=== PATIENT | male | born 1935 | race Caucasian/White ===

== ENCOUNTER 2016-12-31 09:55 | Emergency (ER) | payer OTHER ==
[~2016-12-31] VITALS: Ht 177.8 cm; Wt 48.6 kg
[~2016-12-31 09:55] MED LIST: APAP/CODEINE; ASPIR 8181 M1 PO; ATIVAN0.5 MG PO; BENADRYL ALLERG25 MG PO; BENADRYL25 MG PO; Benadryl PO; CIPRO500 MG PO; CORRECTOL5 M1 PO; CRANBERRY250 MG PO; Colace PO; DUONEB 2.5-0.5 M3 ML IPPB; Dulcolax PO; FLOMAX0.4 MG PO; Flomax PO; Heparin Lock 100 uni IV; IRON325 M1 PO; Kenalog,Aristocort 0 TP; LEVOPHED IV; LIDEX 0.05% CRE60 GM TP; LOPRESSOR25 MG PO; Lopressor PO; Lovenox SC; METHENAMINE HIPP1 G1 PO; MICATIN15 GM TP; MONDOXYNE NL100 MG PO; Maalox, Mylanta PO; Milk Of Magnesia,MOM PO; Nitrostat,NitroQuick SL; Normal Saline,NaCl 0 IV; OMEPRAZOLE20 MG PO; PRILOSEC40 MG PO; PROZAC10 MG PO; PROzac PO; Protonix PO; REMERON30 M2 PO; Rocephin IV; SALINE FLUSH 5 M5 ML IV; SIMETHICONE125 M1 PO; SINEMET 10-1001 EACH PO; SINEMET PO; TRIAMCINOLONE A15 G1 TP; TYLENOL REGULA325 MG PO; TYLENOL WITH C1 EACH PO; ULTRAM50 MG PO; Ultram PO; VERSED IV; VITAMIN A A1 CAPSULE PO; Zofran IV
[2016-12-31 10:35] LABS: EOSINOPHIL (%) 5.3 % (0-5); EOSINOPHIL COUNT 0.4 K/uL (0-0.3); HEMATOCRIT 34.9 % (38.0-50.0); IMMATURE GRANULOCYTE (%) 1.6 % (0.0-0.7); IMMATURE GRANULOCYTE COUNT 0.1 K/uL; INSTRUMENT ABS NEUTROPHIL CT 5.3 K/uL; LYMPHOCYTE COUNT 0.6 K/uL (1.0-2.8); MCH 27.3 PG (29.0-34.0); MCHC 30.1 G/DL (30.0-36.0); MCV 90.9 FL (86-99); MEAN PLAT.VOLUME 9.2 uM^3 (9.0-12.4); MONOCYTE COUNT 0.6 K/uL (0-0.8); NEUTROPHIL (%) 75.7 % (45-76); NEUTROPHIL COUNT 5.3 K/uL (1.8-6.4); PLATELET COUNT 253 K/uL (156-360); RBC DIS.WIDTH-CV 15.3 % (11.8-14.6); RBC DIS.WIDTH-SD 51.1 % (39-53); RED BLOOD COUNT 3.84 M/uL (4.00-5.50)
[2016-12-31 10:44] LABS: INTER. NORMALIZED RATIO 1.1; PROTHROMBIN TIME 11.3 (9.2-11.2); PTT 30.2 (25-32)
[2016-12-31 10:45] LABS: CHLORIDE 110 mEq/L (99-109); SODIUM 143 mEq/L (136-147)
[2016-12-31 10:47] LABS: GLUCOSE 97 mg/dL (70-99)
[2016-12-31 10:48] LABS: ANION GAP 8 MEQ/L (2-14)
[2016-12-31 10:51] LABS: GFR ESTIMATE (CALCULATED) > 59 mL/min/
[2016-12-31 10:52] LABS: UREA NITROGEN (BUN) 37 mg/dL (9-23)
[2016-12-31 10:56] LABS: TROP-I INTERPRETATION NEGATIVE; TROPONIN-I 0.01 ng/mL (0.0-0.30)
[2016-12-31 13:56] VITALS: BP 107/68
== END 2016-12-31 14:58 | disposition short-term general hospital (02) ==
LOC: EME 09:55
PROVIDERS: Emergency Medicine
PROC: 0HQ1XZZ Repair Face Skin, External Approach (ICD-10-PCS; principal; 2016-12-31)
DX: I63.9 Cerebral infarction, unspecified (principal); S01.81XA Laceration without foreign body of other part of head, initial encounter; S51.012A Laceration without foreign body of left elbow, initial encounter; W26.9XXA Contact with unspecified sharp object(s), initial encounter; F32.9 Major depressive disorder, single episode, unspecified; Z86.73 Personal history of transient ischemic attack (TIA), and cerebral infarction without residual deficits; E55.9 Vitamin D deficiency, unspecified; G62.9 Polyneuropathy, unspecified; N40.0 Benign prostatic hyperplasia without lower urinary tract symptoms; F03.90 Unspecified dementia, unspecified severity, without behavioral disturbance, psychotic disturbance, mood disturbance, and anxiety; G20 Parkinson's disease; Z66 Do not resuscitate; R29.810 Facial weakness; Z79.82 Long term (current) use of aspirin; Z88.0 Allergy status to penicillin
CPT/HCPCS: 70450; 71010; 80048; 84484; 85025; 85610; 85730; 93005; 99281; 99285